=== PATIENT | male | born 1960 | race Caucasian/White ===

== ENCOUNTER 2017-04-02 17:22 | Inpatient (IN) ==
--- NOTE | 2017-04-02 19:00 | Diag Imaging Result Doc PS360 ---
EXAM: RIBS UNILAT W/PA CHEST LEFT HISTORY: RIB INJURY TECHNIQUE: PA chest and left rib series 5 views: COMMENT: There is a small apical pneumothorax on the left. This measures almost 2 cm in the apex. There are fractures of the posterior fifth, six, seventh, eighth, and the distal eighth ribs on the left. There is a small amount of pleural fluid possibly blood on the left. There is COPD. There are no previous studies. There is atelectasis in the left lower lobe. IMPRESSION: Left pneumothorax. Multiple left rib fractures. Electronically signed by Ky Burch 04/02/2017 6:58 PM
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
[2017-04-02] MEDS ORDERED: MORPHINE IV PRN (20:12)
[2017-04-02] MEDS ORDERED: ZOFRAN IV PRN (20:12)
[2017-04-02] MEDS ORDERED: NS 1,000 ML IV ONE (20:12)
[2017-04-02 20:17] LABS: MANUAL DIFF NEEDED? NO
[2017-04-02 20:34] LABS: AGAP 10; ALBUMIN 4.3 g/dL (3.5-5.0); ALKALINE PHOSPHATASE 77 U/L (32-122); BUN 7 mg/dL (8-22); CALCIUM 8.8 mg/dL (8.8-10.2); CHLORIDE 97 mmol/L (98-107); COSMO 266; GOT 17 U/L (10-34); GPT 18 U/L (10-44); POTASSIUM 3.8 mmol/L (3.5-5.1); SODIUM 134 mmol/L (136-145); TCO2 27 mmol/L (25-35)
[2017-04-02 20:49] LABS: BASO% 0.2 % (0.0-0.8); EOS# 0.21 X1000 (0.0-0.7); EOS% 1.9 % (0.0-10.0); HEMATOCRIT 37.8 % (42.0-52.0); HEMOGLOBIN 14.3 g/dL (14.0-18.0); IMM GRAN# 0.02 X1000 (0.0-0.04); IMM GRAN% 0.2 % (0.0-0.5); LYMPH% 23.9 % (20.5-51.1); MCH 35.5 PG (27-31); MCHC 37.8 g/dL (33-37); MCV 93.8 FL (81-99); MONO% 13.8 % (1.7-9.3); MPV 9.9 FL (7.4-10.4); PLT 269 X1000 (130-400); RBC 4.03 XMIL (4.7-6.1)
[2017-04-02 21:17] LABS: INR 0.95 (0.86-1.15); PTT PL 38.7 Seconds (22.6-43.9)
[2017-04-03] MEDS ORDERED: PRILOSEC PO ONE (00:43)
[2017-04-03] MEDS: PERCOCET-5 PO PRN ×2 (01:01→05:30)
--- NOTE | 2017-04-03 08:49 | Diag Imaging Result Doc PS360 ---
EXAM: CHEST-2 VIEWS HISTORY: re-evaluation of L pneumothorax TECHNIQUE: PA and lateral COMMENT: There is still a left apical pneumothorax which is not appreciably changed since the previous study of 04/02/2017. There is atelectasis in the left base. Multiple rib fractures are again noted on the left. There is apparent COPD. There is an apparent fluid collection in the left lower pleural space which may be a hemothorax. IMPRESSION: Essentially stable since 04/02/2017. Electronically signed by Ky Burch 04/03/2017 8:46 AM
[2017-04-03 11:27] VITALS: BP 117/86
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
== END 2017-04-03 13:49 | disposition home or self-care (01) ==
LOC: P.ED 17:22 → 4N 20:39
PROVIDERS: ADMIT Surgery; ATTEND Surgery